=== PATIENT | female | born 1960 | race Hispanic/Latino ===

== ENCOUNTER 2017-06-14 12:34 | Inpatient (IN) | payer BC ==
[2017-06-14] MEDS ORDERED: Dextrose 50% Abboject 50 ML SYRINGE ONE (12:39)
[2017-06-14 13:30] LABS: #Eosinphils 0.1 thou/uL (0.0-0.7); #Lymphocytes 1.6 thou/uL (1.20-3.40); #Monocytes 0.3 thou/uL (0.11-0.59); #Neutrophils 12.1 thou/uL (1.40-6.50); %Basophils 0.1 % (0.0-1.0); %Eosinophils 0.4 % (0.0-10.0); %Lymphocytes 11.7 % (21.0-51.0); %Monocytes 1.9 % (0.0-10.0); Hematocrit 37.8 % (36.0-47.0); Mean Platelet Volume 6.7 fL (7.4-10.4); Red Blood Cell (RBC) Count 3.98 mill/uL (4.20-5.40); White Blood Cell (WBC) Count 14.1 thou/uL (4.8-10.8)
[2017-06-14 13:51] LABS: ALT (SGPT) 29 U/L (8-55); AST (SGOT) 35 U/L (5-34); Alkaline Phosphatase 93 U/L (40-150); Anion Gap 24 mmol/L (10-20); BUN (Urea Nitrogen) 24 mg/dL (9.8-20.1); Bilirubin, Total 0.4 mg/dL (0.2-1.2); CK (CPK) 275 U/L (29-168); Calc. Creatinine Clearance 0 mL/min (70-130); Calcium 9.6 mg/dL (7.8-10.44); Carbon Dioxide 16 mmol/L (22-29); Chloride 97 mmol/L (98-107); Estimated GFR-MDRD 50; Globulin 3.2 g/dL (2.4-3.5); Lipase 53 U/L (8-78); Protein, Total 7.9 g/dL (6.0-8.3)
[2017-06-14 13:51] LABS: Troponin I 0.014 ng/mL (< 0.028)
[2017-06-14 13:55] LABS: Lactic Acid - Sepsis 7.2 mmol/L (0.5-2.2)
[2017-06-14 14:06] LABS: Bilirubin Negative (Negative); Blood, Urine Negative (Negative); Glucose, Urine (Dipstick) 500 mg/dL (Negative); Ketone, Urine 40 mg/dL (Negative); Nitrite Negative (Negative); Protein, Urine (Dipstick) Negative (Neg-Trace); Urobilinogen 0.2 mg/dL (0.2-1.0)
--- NOTE | 2017-06-14 14:13 | RAD ---
AP VIEW CHEST: Date: 06/14/17 HISTORY: Weakness, diaphoresis. Altered mental status. FINDINGS: AP view of chest obtained. The lungs are well aerated. No evidence of active intrathoracic disease is seen. No evidence of effusions, pneumonia, or pneumothorax seen. IMPRESSION: Unremarkable AP views of chest. POS: [facility]
[2017-06-14 14:15] LABS: Amphetamine Not Detected (NotDetected); Methadone Not Detected (NotDetected); Methamphetamine Not Detected (NotDetected)
[2017-06-14 14:22] LABS: Acetaminophen Less than 6.0 mcg/mL (10.0-30.0); Salicylate Less than 8.0 mg/dL (15.0-30.0)
[2017-06-14 15:30] LABS: Anion Gap 14 mmol/L (-14-95); T. Carbon Dioxide 21.8 mmol/L (1.0-85.0); pH (Venous) 7.237 (7.35-7.45); vO2 Saturation-calc 62.8 % (0.0-100.0)
[2017-06-14] MEDS ORDERED: Ondansetron HCl/PF 4 MG/2 ML Vial IVP PRN ×2 (20:48→21:08)
[2017-06-14] MEDS ORDERED: Ondansetron ODT 4 MG TAB SL PRN (20:48)
[2017-06-14] MEDS ORDERED: Sodium Chloride 0.9% 1,000 ML IV SCH (20:48)
[2017-06-14] MEDS ORDERED: hydrALAZINE 20 MG/ML VIAL SLOW IVP PRN (21:08)
[2017-06-14] MEDS ORDERED: HumaLOG 300 UNITS/3 ML VIAL SC PRN (21:08)
[2017-06-14] MEDS ORDERED: Acetaminophen 325 MG TAB PO PRN (21:08)
[2017-06-14] MEDS ORDERED: Dextrose 50% Abboject 50 ML SYRINGE SLOW IVP PRN (21:08)
[2017-06-14] MEDS ORDERED: Dextrose 5% in Water 1,000 ML IV PRN (21:08)
[2017-06-14] MEDS: Sodium Chloride 0.9% 1,000 ML IV SCH (21:10)
[2017-06-15] MEDS: Docusate 100 MG CAP PO SCH ×3 (00:18→20:08)
[2017-06-15] MEDS: Famotidine 20 MG TAB PO SCH ×3 (00:18→20:08)
[2017-06-15 00:26] LABS: Bacteria/HPF None Seen HPF (None Seen); RBC/HPF None Seen HPF (0-3); Renal Epithelial None Seen HPF (0-3); Squamous Epithelial None Seen HPF (0-3); Transitional Epithelial NONE SEEN HPF (0-3); WBC/HPF None Seen HPF (0-3); Yeast-All Forms None Seen HPF (None Seen)
[2017-06-15 00:27] LABS: Hyaline Casts/LPF NONE SEEN LPF (0-3 Hyaline)
[2017-06-15] MEDS ORDERED: diphenhydrAMINE 25 MG CAP PO PRN (01:12)
[2017-06-15 05:32] LABS: #Lymphocytes 3.3 thou/uL (1.20-3.40); #Monocytes 0.7 thou/uL (0.11-0.59); #Neutrophils 4.4 thou/uL (1.40-6.50); %Basophils 0.3 % (0.0-1.0); %Eosinophils 0.5 % (0.0-10.0); Hematocrit 29.1 % (36.0-47.0); Mean Platelet Volume 6.9 fL (7.4-10.4); Red Blood Cell (RBC) Count 3.12 mill/uL (4.20-5.40); White Blood Cell (WBC) Count 8.3 thou/uL (4.8-10.8)
[2017-06-15 05:59] LABS: Anion Gap 10 mmol/L (10-20); BUN (Urea Nitrogen) 18 mg/dL (9.8-20.1); Calc. Creatinine Clearance 53 mL/min (70-130); Calcium 8.7 mg/dL (7.8-10.44); Carbon Dioxide 25 mmol/L (22-29); Chloride 110 mmol/L (98-107); Estimated GFR-MDRD 65
[2017-06-15] MEDS: HYDROcodone/Acetaminophen 5/325 mg Tablet PO PRN ×2 (06:31→16:33)
[2017-06-15] MEDS: Sodium Chloride 0.9% 1,000 ML IV SCH ×3 (06:35→20:08)
--- NOTE | 2017-06-15 13:22 | PDOC.PN ---
- Subjective Encounter Start Date: 06/15/17 Encounter Start Time: 13:20 doing better no n/v c/o poor appetite no f/c - Objective MAR Reviewed: Yes Vital Signs & Weight: Vital Signs (12 hours) Temp Pulse Resp BP Pulse Ox 06/15/17 12:37 98.4 F 78 14 110/71 95 06/15/17 08:10 98.6 F 77 16 101/66 98 06/15/17 08:05 98.6 F 77 16 98 06/15/17 04:00 97.8 F 84 18 100/56 L 96 Weight Weight 107 lb Result Diagrams: 06/15/17 04:52 06/15/17 04:52 Additional Labs: Accuchecks 06/15/17 06/15/17 06/15/17 10:53 07:22 06:17 POC Glucose 149 H 166 H 76 06/15/17 06/14/17 06/14/17 01:34 20:47 19:51 POC Glucose 66 L 241 H 104 06/14/17 19:16 POC Glucose 42 L* Phys Exam - Physical Examination Constitutional: NAD HEENT: moist MMs Neck: no JVD Respiratory: no rales Cardiovascular: no significant murmur Gastrointestinal: no distention Musculoskeletal: pulses present Neurological: moves all 4 limbs Psychiatric: A&O x 3 Dx/Plan (1) Lactic acidosis Code(s): E87.2 - ACIDOSIS Status: Acute (2) Diabetes mellitus Code(s): E11.9 - TYPE 2 DIABETES MELLITUS WITHOUT COMPLICATIONS Status: Acute (3) HTN (hypertension) Code(s): I10 - ESSENTIAL (PRIMARY) HYPERTENSION Status: Acute (4) Elevated WBC count Code(s): D72.829 - ELEVATED WHITE BLOOD CELL COUNT, UNSPECIFIED Status: Acute (5) ARF (acute renal failure) Status: Acute - Plan * cont current mx * stop metformin * lactic acidosis resolved * start sulfonylurea and monitor sugar * possible d/c in am * sirs with elevated wbc resolved
--- NOTE | 2017-06-15 14:12 | HP ---
DATE OF SERVICE: 06/14/2017 CHIEF COMPLAINT: Hypoglycemic episode. HISTORY OF PRESENT ILLNESS: This is a 57-year-old pleasant lady who was apparently in her usual stat e of health, was feeling uneasy this morning and then had excessive sweating and tremors. She did no t feel well around noon and she called paramedics, who checked her sugar which was 45. They quickly gave her 1 iron, glucagon, and some oral glucose and by the time she came into the hospital, her suga r was still less. She got an amp of D50, right now the sugar is 145. She is feeling much better rig ht now. Of note, her lactic acid which was checked was also 7.2 and she had some elevated white coun t, and she is being admitted to the hospital for evaluation of the hypoglycemia and treatment of the lactic acidosis. PAST MEDICAL HISTORY: Significant for diabetes, hypertension, GERD, minimal coronary artery disease. PAST SURGICAL HISTORY: Significant for left rotator cuff surgery, heart catheterization which showed minimal disease, history of carpal tunnel surgery, left wrist surgery, gallbladder surgery. PSYCHIATRIC: Includes anxiety. SOCIAL HISTORY: Includes no smoking, no drugs. No alcohol abuse. FAMILY HISTORY: Negative for diabetes and hypertension. ALLERGIES: No known drug allergies. MEDICATIONS: Include lisinopril 10 mg p.o. daily, aspirin 81 mg p.o. daily, Protonix 40 p.o. daily, Lipitor 20 p.o. daily, metformin 500 p.o. b.i.d. REVIEW OF SYSTEMS: Significant for sweating and tremors. Otherwise no fever, no chills, no headache, no appetite, no hearing loss or latencies. No cough, no chest pain, no dysuria, no polyuria, no mem ory or mood changes. No neck pain. PHYSICAL EXAMINATION: VITAL SIGNS: Blood pressure is 98/65, pulse is 85, afebrile, breathing comfortably on room air. GENERAL: Patient is lying in bed in no apparent distress. HEENT: Atraumatic, normocephalic. Pupils are equal, round and reactive to light. Extraocular movem ents intact. Mucous membranes moist. NECK: Supple. No JVD. CHEST: Breath sounds. There are no rales or rhonchi. HEART: S1, S2, no murmurs or gallops. ABDOMEN: Soft. EXTREMITIES: No cyanosis, clubbing, or edema. Distal pulses present. NEUROLOGIC: Alert, awake, oriented. No cranial deficits. No sensorimotor deficits. LABORATORY DATA: EKG shows normal sinus rhythm. Chest x-ray is normal. The pH on VBG is 7.2. TSH is 0.4. Lactic acid is 7.2. UDS is negative. UA is pending. Potassium is 4, creatinine is 1.1. W BC count is 14, hemoglobin is 12. ASSESSMENT AND PLAN: 1. Hypoglycemic episode with lactic acidosis, possibly secondary to metformin use. Patient has been using metformin for 5 years, so this could be idiosyncratic reaction. I am not sure if there any ot her causes. Right now, we will hydrate the patient. We will check lactic acid in the hospital [facility] this hospital stay and we will check arterial blood gas in the morning. We will use insulin slidin g scale for now, and we will probably use sulfonylurea or different oral hypoglycemic agent during th is . 2. Dehydration. Given acute renal failure, we will hydrate and check a creatinine. 3. Systemic inflammatory response syndrome with elevated white count. We will do blood cultures and empiric treatment with Levaquin. We will follow UA, chest x-ray appears to be clear. 4. Gastroesophageal reflux disease appears to be stable. 5. Coronary artery disease, stable. 6. Sequential compression devices for deep venous thrombosis prophylaxis. 7. The patient is FULL CODE. I will follow the labs and do not the need for.
[2017-06-16] MEDS: Sodium Chloride 0.9% 1,000 ML IV SCH (05:51)
[2017-06-16 06:01] LABS: Anion Gap 9 mmol/L (10-20); BUN (Urea Nitrogen) 9 mg/dL (9.8-20.1); Calc. Creatinine Clearance 55 mL/min (70-130); Calcium 8.8 mg/dL (7.8-10.44); Carbon Dioxide 27 mmol/L (22-29); Chloride 110 mmol/L (98-107); Estimated GFR-MDRD 64
[2017-06-16 06:11] LABS: Hematocrit 28.9 % (36.0-47.0); Mean Platelet Volume 6.2 fL (7.4-10.4); Neutrophil 36 % (42-75); Red Blood Cell (RBC) Count 3.06 mill/uL (4.20-5.40); White Blood Cell (WBC) Count 6.8 thou/uL (4.8-10.8)
--- NOTE | 2017-06-16 08:10 | PDOC.PN ---
- Subjective Encounter Start Date: 06/16/17 Encounter Start Time: 09:00 Subjective: Patient feeling better. No more hypoglycemia. Had a little congestion -: and cough on and off. No other infectious signs. - Objective MAR Reviewed: Yes Vital Signs & Weight: Vital Signs (12 hours) Temp Pulse Resp BP Pulse Ox 06/16/17 04:00 97.9 F 78 18 118/76 95 Weight Weight 111 lb 9.6 oz I&O: 06/15/17 06/16/17 06/17/17 06:59 06:59 06:59 Intake Total 3825 Output Total 2950 Balance 875 Result Diagrams: 06/16/17 05:14 06/16/17 05:14 Additional Labs: Accuchecks 06/16/17 06/15/17 06/15/17 06:04 21:06 16:43 POC Glucose 92 177 H 101 06/15/17 06/15/17 06/14/17 13:44 10:53 20:47 POC Glucose 122 H 149 H 241 H Phys Exam - Physical Examination Constitutional: NAD HEENT: moist MMs Respiratory: no wheezing, no rales, no rhonchi, clear to auscultation bilateral Cardiovascular: RRR, no significant murmur Gastrointestinal: soft, positive bowel sounds Musculoskeletal: no edema, pulses present Neurological: non-focal, moves all 4 limbs Psychiatric: normal affect, A&O x 3 Dx/Plan (1) SIRS (systemic inflammatory response syndrome) Code(s): R65.10 - SIRS OF NON-INFECTIOUS ORIGIN W/O ACUTE ORGAN DYSFUNCTION Status: Resolved Comment: Leukocytosis and Lactic acidosis resolved, cultures negative to date, no focus of infection identified, not on antibiotics (2) ARF (acute renal failure) Status: Resolved (3) Elevated WBC count Code(s): D72.829 - ELEVATED WHITE BLOOD CELL COUNT, UNSPECIFIED Status: Resolved (4) Lactic acidosis Code(s): E87.2 - ACIDOSIS Status: Resolved (5) Diabetes mellitus Code(s): E11.9 - TYPE 2 DIABETES MELLITUS WITHOUT COMPLICATIONS Status: Chronic Comment: metformin d/c'd due to lactic acidosis, on sulfonourea (6) HTN (hypertension) Code(s): I10 - ESSENTIAL (PRIMARY) HYPERTENSION Status: Chronic - Plan cont current plan of care d/c home today * . - Discharge Day Encounter end time: 09:30
[2017-06-16] MEDS: Docusate 100 MG CAP PO SCH (09:00)
[2017-06-16] MEDS: Famotidine 20 MG TAB PO SCH (09:00)
[2017-06-16] MEDS: glyBURIDE 2.5 MG TAB PO SCH ×2 (10:52→11:59)
--- NOTE | 2017-06-16 12:22 | DIS ---
PRIMARY CARE PHYSICIAN: Dr. Delfina Gomez DIAGNOSES ON ADMISSION: 1. Hypoglycemia. 2. Lactic acidosis. 3. Dehydration. 4. Systemic inflammatory response syndrome. DIAGNOSES ON DISCHARGE: 1. Systemic inflammatory response syndrome, resolved. 2. Lactic acidosis, resolved. 3. Hypoglycemia, resolved. 4. Acute renal failure, resolved. 5. Diabetes mellitus type 2. 6. Hypertension. PROCEDURES: None. CONSULTATIONS: None. PERTINENT LABORATORY DATA: Glucose was 37 on admission, now controlled, running around 92 and 87 on sulfonylurea. Lactic acid 7.2 on admission down to 2.2 at discharge. Creatinine 1.13 on admission down to 0.91 on discharge. HOSPITAL COURSE: This is a 57-year-old female who developed excessive sweating and tremors, did not feel well. She was found to be hypoglycemic when EMS arrived at 45. Her lactic acid was el evated along with her white blood cell count mildly elevated in the emergency room. The patient was given fluids. Her metformin was stopped and she was started on glyburide with good control of her bl ood sugar without any low blood sugar episodes. Her lactic acidosis resolved. Her white blood cell count returned to normal. She did not require any antibiotics. No focus of infection was found. Th e patient was doing well the day of discharge and discharged home. DISCHARGE MANAGEMENT: Discharged home. Follow up with Dr. Gomez in 7 days. ACTIVITY: As tolerated. DIET: Diabetic, low sodium diet. DISCHARGE MEDICATIONS: 1. Glyburide 2.5 mg each morning, 30 tablets dispensed. She is to resume all of her other medicati ons except for Metformin. 2. Aspirin 81 mg daily. 3. Atorvastatin 20 mg at night. 4. Vitamin D 3000 units daily. 5. Bentyl 10 mg 3 times a day. 6. Lisinopril 5 mg daily. 7. Metaxalone, one half to one tablet twice a day as needed for muscle spasms. 8. Naproxen 550 mg q.12h. as needed for pain. 9. Protonix 40 mg twice a daily. 10. Sucralfate 1 tablet 4 times a day.
[2017-06-16 16:57] VITALS: BP 147/82; TEMP 98.5
[2017-06-16 17:49] VITALS: BMI 22.5
== END 2017-06-16 18:58 | disposition home or self-care (01) | DRG 638 ==
LOC: EDBD 12:34 → ERS 12:34 → 2NO 17:30
PROVIDERS: ADMIT Internal Medicine; ATTEND Internal Medicine
DX: E11.649 Type 2 diabetes mellitus with hypoglycemia without coma (principal); E87.2 Acidosis; N17.9 Acute kidney failure, unspecified; R65.10 Systemic inflammatory response syndrome (SIRS) of non-infectious origin without acute organ dysfunction; E86.0 Dehydration; I10 Essential (primary) hypertension; K21.9 Gastro-esophageal reflux disease without esophagitis; I25.10 Atherosclerotic heart disease of native coronary artery without angina pectoris; R25.1 Tremor, unspecified; R61 Generalized hyperhidrosis; Z79.82 Long term (current) use of aspirin
CPT/HCPCS: 36415; 36416; 71010; 80048; 80053; 80306; 80307; 81001; 81003; 82010; 82330; 82553; 82803; 83605; 83690; 83880; 84443; 84484; 85025; 87040; 93005; 96361; 96365; 96375; J1956

== ENCOUNTER 2017-07-30 14:33 | Outpatient (CLI) | payer OTHER ==
--- NOTE | 2017-07-30 15:57 | MRI ---
MRI RIGHT SHOULDER WITHOUT CONTRAST: Date: 07/30/17 HISTORY: Injury. [place] a pop. COMPARISON: None. FINDINGS: Biceps Tendon: No normal extraarticular biceps tendon is appreciated. No normal intraarticular biceps tendon is appr eciated. Glenoid Labrum: There is a tear of the superior labrum, along with free edge blunting. Rotator Cuff: Full thickness, full width tear of the supraspinatus tendon with tendon fibers retracted through the mid humeral head from the footplate. Extensive tendinosis of the infraspinatus tendon with interstiti al tearing. Muscles: There is 20-30% atrophy of the supraspinatus muscle. Rotator cable is medially displaced, although th ere are some anterior attachments from its coracohumeral origin. Bones: Moderate degenerative disease of acromioclavicular joint. Undersurface keel osteophyte of the acromio n. IMPRESSION: 1. Full thickness, full width supraspinatus tendon tear retracted through mid humeral head. Rotator cable is retracted to the glenohumeral joint. 2. No normal intraarticular biceps tendon nor tendon at the intratubercular groove. 3. Moderate subacromial/subdeltoid bursal effusion. 4. Extensive tendinosis infraspinatus tendon, as well as interstitial tearing and myotendinous junct ion cyst. 5. Undersurface keel osteophyte of the acromion creating a Type III acromion. POS: OFF
== END 2017-07-30 14:34 | disposition home or self-care (01) ==
LOC: SCSMRI 14:33
PROVIDERS: ATTEND Family Medicine
DX: S46.911D Strain of unspecified muscle, fascia and tendon at shoulder and upper arm level, right arm, subsequent encounter (principal); M75.101 Unspecified rotator cuff tear or rupture of right shoulder, not specified as traumatic; M25.411 Effusion, right shoulder

== ENCOUNTER 2017-09-02 13:21 | Outpatient (CLI) | payer OTHER ==
[2017-09-02 14:19] LABS: #Basophils 0.1 thou/uL (0.0-0.2); #Eosinphils 0.1 thou/uL (0.0-0.7); #Lymphocytes 2.6 thou/uL (1.20-3.40); #Monocytes 0.5 thou/uL (0.11-0.59); #Neutrophils 6.2 thou/uL (1.40-6.50); %Basophils 0.6 % (0.0-1.0); %Monocytes 4.8 % (0.0-10.0); %Neutrophils 65.7 % (42.0-75.0); Mean Corpuscular HGB CONC 32.6 g/dL (32.0-36.0); Mean Corpuscular Hemoglobin 28.4 pg (27.0-31.0); Mean Corpuscular Volume 87.4 fl (81.0-99.0); Mean Platelet Volume 6.5 fL (7.4-10.4); Platelet Count 363 thou/uL (130-400); RBC Distribution Width 12.9 % (11.5-14.5); Red Blood Cell (RBC) Count 3.52 mill/uL (4.20-5.40); White Blood Cell (WBC) Count 9.4 thou/uL (4.8-10.8)
== END 2017-09-02 13:22 | disposition home or self-care (01) ==
LOC: LABBT 13:21
PROVIDERS: ATTEND Orthopaedic Surgery
DX: Z01.810 Encounter for preprocedural cardiovascular examination (principal); Z01.812 Encounter for preprocedural laboratory examination; M75.101 Unspecified rotator cuff tear or rupture of right shoulder, not specified as traumatic; M75.21 Bicipital tendinitis, right shoulder
CPT/HCPCS: 85025; 93005; 93010